=== PATIENT | female | born 1990 | race American Indian/Alaskan Native ===

== ENCOUNTER 2016-08-21 08:28 | Emergency (ER) | payer MEDICAID ==
[2016-08-21 08:38] VITALS: BP 113/64
[2016-08-21 09:10] LABS: Basophils % (Auto) 0.3 % (0.0-1.8); Eosinophils % (Auto) 0.4 % (0.0-4.3); Hemoglobin 10.7 gm/dl (10.1-14.3); Mean Corpuscular HGB Conc 32 % (30-34); Mean Corpuscular Hemoglobin 28 pg (28-32); Mean Corpuscular Volume 85 fl (79-97); Platelet Count 309 K/mm3 (140-440); Red Blood Count 3.87 M/mm3 (3.65-5.03); Red Cell Distribution Width 18.8 % (13.2-15.2); White Blood Count 9.9 K/mm3 (4.5-11.0)
[2016-08-21 09:14] LABS: Anion Gap 17 mmol/L; Blood Urea Nitrogen 7 mg/dL (7-17); Calcium 8.3 mg/dL (8.4-10.2); Carbon Dioxide 21 mmol/L (22-30); Chloride 102.6 mmol/L (98-107); Glucose 85 mg/dL (65-100); Sodium 137 mmol/L (137-145)
[2016-08-21 09:49] LABS: Bilirubin,Urine NEG (Negative); Blood,Urine LG (Negative); Ketones,Urine TR mg/dL (Negative); Leukocyte Esterase,Urine MOD (Negative); Nitrite,Urine NEG (Negative); Urobilinogen,Urine < 2.0 mg/dL (<2.0)
[2016-08-21 10:08] LABS: Bacteria,Urine 2+ /HPF (Negative); RBC,Urine > 182.0 /HPF (0.0-6.0); WBC,Urine > 182.0 /HPF (0.0-6.0)
[2016-08-21] MEDS ORDERED: XYLOCAINE 1% MPF 5 mL INFILTRATI ONE (10:59)
[2016-08-21] MEDS ORDERED: ROCEPHIN IM ONE (10:59)
[2016-08-21] MEDS ORDERED: ZITHROMAX PO ONE (10:59)
--- NOTE | 2016-08-21 12:35 | Emergency Department Report ---
ED Female HPI - General Chief complaint: Urogenital-Female Stated complaint: BLOOD IN URINE Source: patient Mode of arrival: Ambulatory Limitations: No Limitations - History of Present Illness Initial comments: 25 year old female presents to ED with dysuria and hematuria. patient denies abdominal or pelvic pain. patient states she is sexaully active without protection and would like to be treated for STD during ED visit. patient is stable, neurologically intact and in no acute distress. MD Complaint: dysuria, possible STD, other (hematuria) Onset/Timin -: Sudden, days(s) Radiation: non-radiating Severity: mild Quality: burning Consistency: intermittent Improves with: none Worsens with: urination Are you Now?: No Associated Symptoms: denies other symptoms, dysuria - Related Data Sexually active: Yes Previous Rx's Medication Instructions Recorded Last Taken Type metroNIDAZOLE 0.75% [Vandazole 1 applicator VG QHS #5 tube 05/18/15 Unknown Rx 0.75% VAGINAL] Ferrous Sulfate [Feosol 325 MG tab] 325 mg PO BID #60 tablet 10/29/15 Unknown Rx Ibuprofen [Motrin 600 MG tab] 600 mg PO Q6HR #30 tablet 10/29/15 Unknown Rx Vit W-Ca,Fe,FA(<1 mg) 1 each PO DAILY #30 tablet 10/29/15 Unknown Rx [ Vitamins] Sulfamethoxazole/Trimethoprim 1 each PO BID #14 tablet 08/21/16 Unknown Rx [Bactrim DS TAB] metroNIDAZOLE [Flagyl] 500 mg PO Q12HR #14 tab 08/21/16 Unknown Rx Allergies Allergy/AdvReac Type Severity Reaction Status Date / Time No Known Allergies Allergy Verified 11/19/14 00:48 ED Review of Systems ROS: Stated complaint: BLOOD IN URINE Other details as noted in HPI Constitutional: denies: chills, fever Eyes: denies: eye pain, eye discharge, vision change ENT: denies: ear pain, throat pain Respiratory: denies: cough, shortness of breath, wheezing Cardiovascular: denies: chest pain, palpitations Endocrine: no symptoms reported Gastrointestinal: denies: abdominal pain, nausea, diarrhea Genitourinary: dysuria, hematuria. denies: urgency, discharge Musculoskeletal: denies: back pain, joint swelling, arthralgia Skin: denies: rash, lesions Neurological: denies: headache, weakness, paresthesias Psychiatric: denies: anxiety, depression Hematological/Lymphatic: denies: easy bleeding, easy bruising ED Past Medical Hx - Past Medical History Previous Medical History?: Yes Hx Hypertension: No Hx Congestive Heart Failure: No Hx Diabetes: No Hx Deep Vein Thrombosis: No Hx Renal Disease: No Hx Sickle Cell Disease: No Hx Seizures: No Hx Asthma: No Hx COPD: No Hx HIV: No Additional medical history: Vaginal delivery x 5 - Surgical History Past Surgical History?: No - Social History Smoking Status: Current Every Day Smoker Substance Use Type: Alcohol, Marijuana - Medications Home Medications: Home Medications Medication Instructions Recorded Confirmed Last Taken Type metroNIDAZOLE 0.75% [Vandazole 1 applicator VG QHS #5 tube 05/18/15 08/21/15 Unknown Rx 0.75% VAGINAL] Ferrous Sulfate [Feosol 325 MG tab] 325 mg PO BID #60 tablet 10/29/15 Unknown Rx Ibuprofen [Motrin 600 MG tab] 600 mg PO Q6HR #30 tablet 10/29/15 Unknown Rx Vit W-Ca,Fe,FA(<1 mg) 1 each PO DAILY #30 tablet 10/29/15 Unknown Rx [ Vitamins] Sulfamethoxazole/Trimethoprim 1 each PO BID #14 tablet 08/21/16 Unknown Rx [Bactrim DS TAB] metroNIDAZOLE [Flagyl] 500 mg PO Q12HR #14 tab 08/21/16 Unknown Rx ED Physical Exam - General Limitations: No Limitations General appearance: alert, in no apparent distress - Head Head exam: Present: atraumatic, normocephalic - Eye Eye exam: Present: normal appearance - ENT ENT exam: Present: mucous membranes moist - Neck Neck exam: Present: normal inspection - Respiratory Respiratory exam: Present: normal lung sounds bilaterally. Absent: respiratory distress - Cardiovascular Cardiovascular Exam: Present: regular rate, normal rhythm. Absent: systolic murmur, diastolic murmur, rubs, gallop - GI/Abdominal GI/Abdominal exam: Present: soft, normal bowel sounds. Absent: distended, tenderness, guarding - External exam: Present: normal external exam Speculum exam: Present: vaginal discharge (white, milky) Bi-manual exam: Present: normal bi-manual exam. Absent: cervical motion tendernes - Extremities Exam Extremities exam: Present: normal inspection - Back Exam Back exam: Present: normal inspection, full ROM - Neurological Exam Neurological exam: Present: alert, oriented X3, normal gait - Psychiatric Psychiatric exam: Present: normal affect, normal mood - Skin Skin exam: Present: warm, dry, intact, normal color. Absent: rash ED Course Vital Signs 08/21/16 08:35 Temperature 98.7 F Pulse Rate 70 Respiratory 20 Rate Blood Pressure 113/64 O2 Sat by Pulse 100 Oximetry ED Medical Decision Making - Lab Data Result diagrams: 08/21/16 08:47 08/21/16 08:47 Labs 08/21/16 08/21/16 08/21/16 08:47 08:47 09:07 WBC 9.9 RBC 3.87 Hgb 10.7 Hct 33.0 MCV 85 MCH 28 MCHC 32 RDW 18.8 H Plt Count 309 Lymph % (Auto) 22.7 [place] % (Auto) 7.2 Eos % (Auto) 0.4 Baso % (Auto) 0.3 Lymph # 2.2 [place] # 0.7 Eos # 0.0 Baso # 0.0 Seg Neutrophils % 69.4 Seg Neutrophils # 6.9 Sodium 137 Potassium 4.0 Chloride 102.6 Carbon Dioxide 21 L Anion Gap 17 BUN 7 Creatinine 0.5 L Estimated GFR > 60 BUN/Creatinine Ratio 14.00 Glucose 85 Calcium 8.3 L Urine Color Yellow Urine Turbidity Cloudy Urine pH 6.0 Ur Specific [place] 1.023 Urine Protein 100 mg/dl Urine Glucose (UA) Neg Urine Ketones Tr Urine Blood Lg Urine Nitrite Neg Urine Bilirubin Neg Urine Urobilinogen < 2.0 Ur Leukocyte Esterase Mod Urine WBC (Auto) > 182.0 H Urine RBC (Auto) > 182.0 U Epithel Cells (Auto) 25.0 H Urine Bacteria (Auto) 2+ Urine HCG, Qual Negative - Medical Decision Making 25 year old female presents to ED with dysuria and hematuria. urine positive for UTI. Wet prep positive for BV. patient has been treated for STD with rocephin and azithromycin at her request during ED visit. patient is stable, neurologically intact and in no acute distress. patient has negative preg test today. Critical care attestation.: If time is entered above; I have spent that time in minutes in the direct care of this critically ill patient, excluding procedure time. ED Disposition Clinical Impression: UTI (urinary tract infection) Qualifiers: Urinary tract infection type: site unspecified Hematuria presence: with hematuria Qualified Code(s): N39.0 - Urinary tract infection, site not specified Disposition: DC-01 TO HOME OR SELFCARE Is pt being admited?: No Does the pt Need Aspirin: No Condition: Stable Instructions: Urinary Tract Infection in Women (ED) Prescriptions: metroNIDAZOLE [Flagyl] 500 mg PO Q12HR #14 tab Sulfamethoxazole/Trimethoprim [Bactrim DS TAB] 1 each PO BID #14 tablet Referrals: PRIMARY CARE, [Primary Care Provider] - 3-5 Days Forms: Work/School Release Form(ED)
== END 2016-08-21 11:58 | disposition home or self-care (01) ==
LOC: ED 08:28
DX: N39.0 Urinary tract infection, site not specified (principal); F17.200 Nicotine dependence, unspecified, uncomplicated; F12.10 Cannabis abuse, uncomplicated
CPT/HCPCS: 36415; 80048; 81001; 81025; 85025; 87210; 87591; 96372; 99284; J0696

== ENCOUNTER 2017-10-23 09:56 | Emergency (ER) | payer MEDICAID ==
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
[2017-10-23] MEDS ORDERED: FLAGYL PO ONE (13:57)
--- NOTE | 2017-10-23 14:03 | XRay Report ---
RIGHT ANKLE, 3 views: History: Right ankle pain with lateral swelling. Findings: Mild soft tissue swelling is identified. No acute osseous abnormality or joint pathology is identified. The fifth metatarsal base is intact. Impression: Soft tissue swelling. No acute osseous injury.
[2017-10-23 15:09] VITALS: BP 111/72
== END 2017-10-23 15:07 | disposition home or self-care (01) ==
LOC: ED 09:56
DX: S93.401A Sprain of unspecified ligament of right ankle, initial encounter (principal); Z20.2 Contact with and (suspected) exposure to infections with a predominantly sexual mode of transmission; F17.200 Nicotine dependence, unspecified, uncomplicated; Y08.89XA Assault by other specified means, initial encounter; Y93.89 Activity, other specified; Y99.8 Other external cause status; Y92.89 Other specified places as the place of occurrence of the external cause
CPT/HCPCS: 99283

== ENCOUNTER 2018-06-11 17:15 | Emergency (ER) | payer MEDICAID ==
--- NOTE | 2018-06-11 19:16 | Emergency Department Report ---
Chief Complaint: Abdominal Pain Stated Complaint: VAGINAL BLEEDING/ABD/BACK PAIN Time Seen by Provider: 06/11/18 19:14 - HPI History of Present Illness: IRREG PERIODS LMP LAST WEEK CONCERN FOR STI VSS NON TOXIC MSE screening note: Focused history and physical exam performed. Due to findings the following was ordered: ED Disposition for MSE Condition: Stable Instructions: Abdominal Pain (ED)
[2018-06-11 19:17] VITALS: BP 114/81
[2018-06-11 20:35] LABS: Bilirubin,Urine NEG (Negative); Blood,Urine MOD (Negative); Color,Urine Yellow (Yellow); Mucus,Urine 3+ /HPF; Protein,Urine <15 mg/dL mg/dL (Negative)
[2018-06-11 20:42] LABS: HCG Qualitative,Urine Negative (Negative)
== END 2018-06-11 20:05 | disposition left against medical advice (07) ==
LOC: ED 17:15
DX: R10.9 Unspecified abdominal pain (principal); Z53.21 Procedure and treatment not carried out due to patient leaving prior to being seen by health care provider
CPT/HCPCS: 81001; 81025